=== PATIENT | female | born 1940 | race Caucasian/White ===

== ENCOUNTER 2024-06-27 23:26 | Emergency (ER) | payer OTHER, MEDICARE, SELFPAY ==
[2024-06-27 23:26] VITALS: BMI 31.1
[2024-06-27 23:32] VITALS: BP 122/50
--- NOTE | 2024-06-27 23:40 | ED.GENMED ---
History of Present Illness
General
Chief Complaint: Musculo-Skeletal Complaint
Source: patient
Exam Limitations: none
Time Seen by Provider: 06/27/24 23:32
History of Present Illness
History of Present Illness:
See MDM
Past History
Past History
ED Past Medical History: HTN and Psychiatric
ED Past Surgical History: None
Social History
Tobacco: Non-smoker
Alcohol: None
Phy Exam
Physical Exam
Physical Exam:
See MDM
Course
Orders/Labs/Results
Orders:
Orders
06/27/24 23:39
CR Chest - 2 Views Urgent
Comment:
Reason For Exam: cough
Wrist, Right 3 Views [CR Wrist - Right Min 3 Views] Urgent
Comment:
Reason For Exam: fall, R wwrist pain
Vital Signs
Initial and Last Documented VS:
Initial Vital Signs
Temp Pulse Resp BP Pulse Ox
98.3 F 89 18 122/50 96
06/27/24 23:32 06/27/24 23:32 06/27/24 23:32 06/27/24 23:32 06/27/24 23:32
Last Documented Vital Signs
Temp Pulse Resp BP Pulse Ox
98.3 F 89 18 122/50 96
06/27/24 23:32 06/27/24 23:32 06/27/24 23:32 06/27/24 23:32 06/27/24 23:32
MDM/Problems Addressed
Differential Diagnosis Includes:
HPI and MDM Narrative:
84-year-old female presenting with right wrist pain. Per EMS, patient fell out of her wheelchair. She complains of right wrist pain but denies head injury. Patient incidentally found to have a cough. She denies fevers. There is no trauma noted
on exam other than mild bruising to her right wrist. Will obtain x-ray. Lungs are clear. Will obtain chest x-ray
Physical exam
General: Well appearing and non-toxic
HEENT: protecting airway
Neck: appears supple
CV: No evidence of cyanosis
Resp: No accessory muscle use. Lungs clear
Abd: Non-distended
Extremities: Mild bruising to distal right radius. Hand is neurovascularly
Neuro: alert
Psych: Normal affect
Skin: Intact
Problems Addressed including Acute and Chronic Conditions affecting care:
1. Right wrist injury
Acuity: acute
Prognosis: stable
Details: Will obtain x-ray to rule out fracture
2. Cough
Acuity: acute
Prognosis: stable
Details: Lungs clear. Will obtain chest x-ray
Updates
Wrist x-ray concerning for nondisplaced distal radial fracture. Will place in splint
Differential Diagnosis (but not limited to): Viral syndrome, wrist contusion, wrist fracture
Testing considered: CT head but there is no clinical signs of head injury and she denies head trauma
Drug therapy (if applicable): OTC meds, please see d/c instruction regarding Rx drugs
Amount and/or Complexity of Data Reviewed
Clinical info obtained from: Patient
External data reviewed: N/A
Labs I independently reviewed (but not limited to): N/A
Radiology: X-ray independently reviewed: Wrist x-ray concerning for nondisplaced distal radius fracture
Pulse Ox: not hypoxic
EKG independently reviewed: N/A
Fish Roe Technician: N/A
Critical Care: N/A
Risk of Complication:
Social Determinants of health: Good social support
Discussed with other providers: N/A
Escalation of Care includes Admit/Obs: After being observed in the Emergency Department, pt stable for discharge.
Occasional wrong word or 'sound a like' substitutions may have occurred due to the inherent limitations of voice recognition software. Read the chart carefully and recognize, using context, where substitutions have occurred.
*Critical Care Note
Total Time (30-74mins, 75-104mins- exclusive of procedures): Not Applicable
ED Attending Note
-
Portions of this chart may have been created with voice recognition software.� Occasional wrong word or��sound alike� substitutions may have occurred due to the inherent limitations of voice recognition software.
Discharge Plan
Departure
Patient Disposition: Home (Routine Discharge)
Date of Disposition: 06/28/24
Time of Disposition: 02:28
Patient with high blood pressure during this ER visit?: No
Discharge Problem:
Distal radius fracture, right
Instructions: Wrist Fracture (DC)
Referrals:
Moe Dejesus DO [Family Provider] -
Austin Gallegos MD [Active] -
Activity Restrictions/Additional Instructions:
You do have a fracture in your right wrist. Please follow-up with the orthopedist. They may want to cast it. Please return for worsening symptoms.
Interventions
Interventions:
*Risk Screen - Suicide Last Done: 06/27/24 23:34
*General Assessment Last Done: 06/27/24 23:34
*Neglect/Abuse Screening Last Done: 06/27/24 23:34
*ED COVID-19 Vaccine History Last Done: 06/27/24 23:34
Discharge Date and Time
Print Language: NIUEAN
[2024-06-28 04:29] VITALS: BP 129/76
== END 2024-06-28 05:03 | disposition home or self-care (01) ==
LOC: EMR 23:26
PROVIDERS: EMERGENCY PHYSICIAN Student in an Organized Health Care Education/Training Program; FAMILY PHYSICIAN Student in an Organized Health Care Education/Training Program
DX: S52.501A Unspecified fracture of the lower end of right radius, initial encounter for closed fracture (principal); W05.0XXA Fall from non-moving wheelchair, initial encounter
CPT/HCPCS: 99283; 71046; 73110

== ENCOUNTER → 2024-07-07 09:52 | Outpatient (REF) | payer OTHER, MEDICARE, SELFPAY ==
[2024-07-07 11:35] LABS: Urine Albumin Trace (Neg - Trace); Urine Bilirubin Negative (Negative); Urine Character Very Cloudy (Clear); Urine Color Yellow; Urine Glucose Negative (Negative); Urine Ketone Negative (Negative); Urine Leukocyte Negative (Negative); Urine Nitrite Negative (Negative); Urine Occult Blood Negative (Negative); Urine Urobilinogen Negative (Neg - 1+)
== END ==
LOC: OLABN 09:52
PROVIDERS: ATTENDING PHYSICIAN Student in an Organized Health Care Education/Training Program
DX: R35.0 Frequency of micturition (principal); R39.15 Urgency of urination
CPT/HCPCS: 81003; 87086

== ENCOUNTER → 2024-07-21 08:48 | Outpatient (REF) | payer OTHER, SELFPAY ==
[2024-07-21 09:21] LABS: Hematocrit 34.6 % (37.0-47.0); Hemoglobin 10.8 g/dL (12.0-16.0); Mean Corp Hgb Conc. 31.2 g/dL (33.0-37.0); Mean Corpuscular Hgb 29.2 pg (27.0-31.0); Mean Corpuscular Volume 93.5 fL (81.0-99.0); Mean Platelet Volume 11.3 fL (7.4-10.4); Platelet Count 190 10^3/uL (130-400); Red Cell Dist. Width 14.6 % (11.5-14.5); White Blood Cell Count 7.2 10^3/uL (4.8-10.8)
[2024-07-21 09:56] LABS: ALT (SGPT) < 10 U/L (0-35); AST (SGOT) 15 U/L (14-36); Albumin 2.8 g/dl (3.5-5.0); Alkaline Phosphatase 79 U/L (38-126); Blood Urea Nitrogen 27 mg/dl (7-17); Calcium 9.4 mg/dl (8.4-10.2); Carbon Dioxide 25 mmol/L (22-30); Chloride 105 mmol/L (98-107); Glucose 85 mg/dl (70-99); Potassium 4.9 mmol/L (3.5-5.1); Sodium 138 mmol/L (135-145); Total Bilirubin 0.4 mg/dl (0.2-1.3); Total Protein 5.6 g/dl (6.3-8.2); eGFR 26.04
== END ==
LOC: OLABN 08:48
PROVIDERS: ATTENDING PHYSICIAN Student in an Organized Health Care Education/Training Program
DX: J44.9 Chronic obstructive pulmonary disease, unspecified (principal); I50.32 Chronic diastolic (congestive) heart failure
CPT/HCPCS: 36415; 80053; 85027

== ENCOUNTER → 2024-08-08 10:04 | Outpatient (REF) | payer OTHER, MEDICARE, SELFPAY ==
[2024-08-08 10:35] LABS: Blood Urea Nitrogen 42 mg/dl (7-17); Calcium 10.4 mg/dl (8.4-10.2); Carbon Dioxide 21 mmol/L (22-30); Chloride 105 mmol/L (98-107); Glucose 73 mg/dl (70-99); Potassium 4.9 mmol/L (3.5-5.1); Sodium 139 mmol/L (135-145); eGFR 19.67
== END ==
LOC: OLABN 10:04
PROVIDERS: ATTENDING PHYSICIAN Student in an Organized Health Care Education/Training Program
DX: I50.32 Chronic diastolic (congestive) heart failure (principal); J44.9 Chronic obstructive pulmonary disease, unspecified
CPT/HCPCS: 36415; 80048

== ENCOUNTER → 2024-08-11 11:29 | Outpatient (REF) | payer MEDICARE, SELFPAY ==
[2024-08-11 12:41] LABS: Blood Urea Nitrogen 32 mg/dl (7-17); Calcium 10.4 mg/dl (8.4-10.2); Carbon Dioxide 20 mmol/L (22-30); Chloride 112 mmol/L (98-107); Glucose 67 mg/dl (70-99); Potassium 4.4 mmol/L (3.5-5.1); Sodium 142 mmol/L (135-145); eGFR 34.58
== END ==
LOC: OLABN 11:29
PROVIDERS: ATTENDING PHYSICIAN Student in an Organized Health Care Education/Training Program
DX: N17.9 Acute kidney failure, unspecified (principal)
CPT/HCPCS: 36415; 80048